=== PATIENT | male | born 1950 | race Caucasian/White ===

== ENCOUNTER 2018-11-21 13:59 | Day surgery (SDC) | payer OTHER ==
[~2018-11-21] VITALS: Ht 175.3 cm; Wt 101.8 kg
[~2018-11-21 13:59] MED LIST: ALLERGY RELIEF1 EAC2 PO; Cialis20 MG PO; Lotrel 10-40 M1 EACH PO; ROSU5 PO; VICODIN 5-3001 EACH PO; ZOLP10 PO
[2018-11-21] MEDS ORDERED: TAMS.4ER (14:13)
[2018-12-29] MEDS ORDERED: CLARITIN10 MG PO (10:44)
[2018-12-29] MEDS ORDERED: Cialis20 MG PO (10:45)
[2018-12-29] MEDS ORDERED: ROSU5 PO (10:45)
[2018-12-29] MEDS ORDERED: ZOLP10 PO (10:45)
== END 2018-11-21 14:48 | disposition home or self-care (01) ==
LOC: ORSCSDS 13:59
PROVIDERS: Anesthesiology
PROC: 3E0R33Z Introduction of Anti-inflammatory into Spinal Canal, Percutaneous Approach (ICD-10-PCS; principal; 2018-11-21 15:45)
DX: M51.16 Intervertebral disc disorders with radiculopathy, lumbar region (principal); M48.00 Spinal stenosis, site unspecified; I10 Essential (primary) hypertension; Z87.891 Personal history of nicotine dependence; E66.9 Obesity, unspecified; Z68.35 Body mass index [BMI] 35.0-35.9, adult; Z79.899 Other long term (current) drug therapy
CPT/HCPCS: J1040

== ENCOUNTER 2019-01-04 10:28 | Day surgery (SDC) | payer OTHER ==
[~2019-01-04] VITALS: Ht 170.2 cm; Wt 103.0 kg
[~2019-01-04 10:28] MED LIST changes: +CLARITIN10 MG PO; +TAMS.4ER
== END 2019-01-04 11:19 | disposition home or self-care (01) ==
LOC: ORSCSDS 10:28
PROVIDERS: Anesthesiology
PROC: 3E0R33Z Introduction of Anti-inflammatory into Spinal Canal, Percutaneous Approach (ICD-10-PCS; principal; 2019-01-04 11:30)
DX: M51.16 Intervertebral disc disorders with radiculopathy, lumbar region (principal); E66.9 Obesity, unspecified; Z68.36 Body mass index [BMI] 36.0-36.9, adult; M54.5 Low back pain; I10 Essential (primary) hypertension; Z79.899 Other long term (current) drug therapy
CPT/HCPCS: J1040

== ENCOUNTER 2019-11-09 16:43 | Inpatient (IN) | payer OTHER ==
[~2019-11-09] VITALS: Ht 172.7 cm; Wt 104.7 kg
[~2019-11-09 16:43] MED LIST changes: -Lotrel 10-40 M1 EACH PO; -TAMS.4ER
[2019-11-09 17:34] LABS: BASOPHILS ABSOLUTE AUTO 0.08 K/mm3 (0.00-0.23); BASOPHILS PERCENT AUTO 1 % (0-2); EOSINOPHILS ABSOLUTE AUTO 0.01 K/mm3 (0.00-0.68); EOSINOPHILS PERCENT AUTO 0 % (0-6); Hematocrit 48.3 % (37.0-53.0); Hemoglobin 16.7 g/dL (13.5-17.5); IMMATURE GRAN ABSOLUTE AUTO 0.16 K/mm3 (0.00-0.10); IMMATURE GRAN PERCENT AUTO 1 % (0-1); LYMPHOCYTES ABSOLUTE AUTO 0.55 K/mm3 (0.84-5.20); LYMPHOCYTES PERCENT AUTO 5 % (21-46); MONOCYTES ABSOLUTE AUTO 0.33 K/mm3 (0.16-1.47); MONOCYTES PERCENT AUTO 3 % (4-13); Mean Corpuscular HGB 32.1 pg (26.0-34.0); Mean Corpuscular HGB Conc 34.6 g/dL (31.5-36.5); Mean Corpuscular Volume 93 fL (80-100); Mean Platelet Volume 12.1 fL (9.1-12.4); NEUTROPHILS ABSOLUTE AUTO 10.75 K/mm3 (1.96-9.15); NEUTROPHILS PERCENT AUTO 91 % (41-73); Platelet Count 176 K/mm3 (150-400); RDW Coefficient Variation 12.9 % (11.7-14.2); RDW Standard Deviation 44.2 fL (35.1-46.3); Red Blood Cell Count 5.21 M/mm3 (4.30-5.90); White Blood Cell Count 11.88 K/mm3 (4.00-11.30)
[2019-11-09 17:57] LABS: Alanine Aminotransfer (ALT/SGP 159 U/L (12-78); Albumin, Blood 2.5 g/dL (3.4-5.0); Albumin/Globulin Ratio 0.5 (0.8-1.8); Alk Phos 175 U/L (50-136); Anion Gap 10 mmol/L (6-16); Aspartate Aminotrans (AST/SGOT 81 U/L (12-37); Bilirubin, Total 3.5 mg/dL (0.1-1.0); Blood Urea Nitrogen 44 mg/dL (8-24); Bun/Creatinine Ratio 35.5 (12.0-20.0); CO2, Blood 22 mmol/L (21-32); Calcium, Blood 10.4 mg/dL (8.5-10.1); Chloride, Blood 104 mmol/L (98-108); Creatinine, Blood 1.24 mg/dL (0.60-1.20); Globulin, Blood 5.5 g/dL (2.2-4.0); Glomerular Filtration Rate >60 (60-); Glucose, Blood 224 mg/dL (70-99); Potassium, Blood 4.3 mmol/L (3.5-5.5); Sodium, Blood 136 mmol/L (136-145); Troponin I <0.015 ng/mL (0.000-0.040)
[2019-11-09] MEDS ORDERED: TAMSULOSIN HCL0.4 M1 PO (21:11)
[2019-11-09] MEDS ORDERED: AMLODIPINE-BEN1 EAC3 PO (21:11)
[2019-11-09] MEDS ORDERED: LOTREL 10-40 M1 EACH PO (22:28)
[2019-11-09] MEDS ORDERED: TAMS.4ER PO (22:29)
[2019-11-09] MEDS ORDERED: Diclofenac Sod100 MG PO (22:29)
[2019-11-09] MEDS ORDERED: METO25ER PO (22:30)
[2019-11-09 23:04] LABS: Free Thyroxine 1.43 ng/dL (0.70-1.60); Thyroid Stimulating Hormone 3.11 uIU/mL (0.360-4.800); Triiodothyronine, Free 5.39 pg/mL (2.18-3.98)
[2019-11-10] MEDS ORDERED: Ocuvite Preser1 EACH PO (02:03)
--- NOTE | 2019-11-10 03:00 | NUR ---
PT ADMITTED TO ROOM ICU 3 UNDER PCU STATUS. ARRIVES TO ROOM AT 0135 IN STABLE CONDITION. IS ABLE TO STAND AND PIVOT TRANSFER TO BED. PT PLACE TO CARDIAC MONITORING. AFIB RVR. TEACHING DONE ON AFIB AND USE OF CARDIZEM DRIP. PT VOICES UNDERSTANDING. BLOOD PRESSURE WITH SBP 90-100'S. PT GOOD HISTORIAN. NO COMPLAINTS OF CHEST PAIN OR PRESSURE. WILL REVIEW CHART AND PLAN OF CARE FOR THIS PT.
[2019-11-10 04:52] LABS: BASOPHILS ABSOLUTE AUTO 0.05 K/mm3 (0.00-0.23); BASOPHILS PERCENT AUTO 1 % (0-2); EOSINOPHILS ABSOLUTE AUTO 0.18 K/mm3 (0.00-0.68); EOSINOPHILS PERCENT AUTO 2 % (0-6); Hematocrit 41.3 % (37.0-53.0); IMMATURE GRAN PERCENT AUTO 2 % (0-1); LYMPHOCYTES ABSOLUTE AUTO 0.53 K/mm3 (0.84-5.20); LYMPHOCYTES PERCENT AUTO 5 % (21-46); MONOCYTES ABSOLUTE AUTO 0.32 K/mm3 (0.16-1.47); MONOCYTES PERCENT AUTO 3 % (4-13); Mean Corpuscular HGB 31.5 pg (26.0-34.0); Mean Corpuscular HGB Conc 33.9 g/dL (31.5-36.5); Mean Corpuscular Volume 93 fL (80-100); Mean Platelet Volume 12.8 fL (9.1-12.4); NEUTROPHILS ABSOLUTE AUTO 9.13 K/mm3 (1.96-9.15); NEUTROPHILS PERCENT AUTO 88 % (41-73); Platelet Count 161 K/mm3 (150-400); RDW Coefficient Variation 12.8 % (11.7-14.2); RDW Standard Deviation 43.7 fL (35.1-46.3); Red Blood Cell Count 4.44 M/mm3 (4.30-5.90); White Blood Cell Count 10.41 K/mm3 (4.00-11.30)
[2019-11-10 05:20] LABS: Bun/Creatinine Ratio 31.4 (12.0-20.0); Calcium, Blood 9.2 mg/dL (8.5-10.1); Creatinine, Blood 1.69 mg/dL (0.60-1.20); Potassium, Blood 3.5 mmol/L (3.5-5.5)
--- NOTE | 2019-11-10 06:04 | NUR ---
PT CONTINUES WITH AFIB RVR WITH RATES 100-120'S. INCREASED CARDIZEM DRIP TO 15 MG PER HOUR. PT VOIDS 200 ML CONCENTRATED URINE. DENIES COMPLAINTS OF PAIN OR DISTRESS. DOES STATE THAT HE HAS BEEN HAVING SOME DYSPNEA AT HOME. WILL CONTINUE TO MONITOR PT, AND WILL REPORT OFF TO ONCOMING RN.
--- NOTE | 2019-11-10 14:15 | NUR ---
ECHO: [employer] INSTALLER IN ROOM AT THIS TIME.
--- NOTE | 2019-11-10 14:30 | NUR ---
SETTING UP FOR DARNELL AND CARDIOVERSION. RT NOTIFIED AND IN THE ROOM SETTING UP AT THIS TIME. 2 VIALS OF FENTANYL, 2 VIALS OF VERSED, 1 VIAL OF RAMAZACON, AND 1 VIAL OF NARCAN PULLED ON OVERRIDE AND SITTING AT BEDSIDE
--- NOTE | 2019-11-10 16:24 | NUR ---
Echocardiogram completed.
--- NOTE | 2019-11-10 17:21 | NUR ---
DARNELL & CARDIOVERSION: 1450 SUZE ARIVED TO THE ROOM 1455 TIME OUT OBSERVED, ZOLL PADS PLACED AND SYNCED WITH PT RHYTHM 1500 CARDIZEM DRIP TURNED DOWN TO 2MG/HR. PUSHED 1MG VERSED, 25MCG FENTANYL VIA IV 1502 PUSHED 1MG VERSED, 25MCG FENTANYL 1505 BP 112/84 CAMERA IN POSSITION AND VISUALIZATION OF HEART ON ECHO 1512 CAMERA OUT 1513 PUSHED 1MG VERSED, 25MCG FENTANYL 1515 200J SHOCK PT NOTED TO CONVERT TO SINUS RHYTHM 1523 PT STILL HAVING DIFFICULTY WAKING UP 0.1MG OF FLUMAZENIL ADMINISTERED 1531 500ML BOLUS OF NS STARTED BP NOTED 67/50 1535 PT MORE ALERT AND REQUESTING HIS TEETH, IN THE ROOM. BP 76/55 DR ARCINIEGA LEFT THE ROOM.
--- NOTE | 2019-11-10 19:00 | NUR ---
ASSUMED CARE OF PATIENT. RECEIVED REPORT FROM OFFGOING RN. PATIENT RESTING COMFORTABLY; NO C/O PAIN OR SOB. OCC. CONGESTED COUGH NOTED. RHYTHM REMAINS SR, RATE 90'S. CALL CANCINO IN REACH.
--- NOTE | 2019-11-10 23:24 | NUR ---
RECEIVED TRANSFER ORDERS FOR PATIENT TO BE MOVED TO MEDICAL FLOOR WITH TELEMETRY. REC'D. BED ASSIGNMENT, ROOM 333. REPORT CALLED TO ALEX CAI. PATIENT TRANSPORTED TO NEW ROOM VIA WHEELCHAIR WITH MONITOR AND RN.
--- NOTE | 2019-11-11 04:00 | NUR ---
SUMMARY PT ARRIVED TO FLOOR IN NO DISTRESS. PT CURRENTLY SR ON TELE. PT DENIES CX OR SOB. PT HAS BEEN VOIDING VIA URINAL. PT HAD A NOTED PERSISTANT COUGH AND PROVIDER ORDERED COUGH MED W/ SOME RELIEF. PT HAS NOT SLEPT MUCH DUE TO COUGH. PT CURRENTLY AWAKE AND IN NO DISTRESS. CALL LIGHT IN REACH.
[2019-11-11 05:45] LABS: BASOPHILS ABSOLUTE AUTO 0.05 K/mm3 (0.00-0.23); BASOPHILS PERCENT AUTO 0 % (0-2); Hematocrit 43.4 % (37.0-53.0); Hemoglobin 14.4 g/dL (13.5-17.5); LYMPHOCYTES ABSOLUTE AUTO 0.64 K/mm3 (0.84-5.20); LYMPHOCYTES PERCENT AUTO 5 % (21-46); MONOCYTES ABSOLUTE AUTO 0.51 K/mm3 (0.16-1.47); MONOCYTES PERCENT AUTO 4 % (4-13); Mean Corpuscular HGB Conc 33.2 g/dL (31.5-36.5); Mean Corpuscular Volume 93 fL (80-100); Mean Platelet Volume 12.2 fL (9.1-12.4); Platelet Count 173 K/mm3 (150-400); RDW Coefficient Variation 13.2 % (11.7-14.2); RDW Standard Deviation 45.3 fL (35.1-46.3); Red Blood Cell Count 4.65 M/mm3 (4.30-5.90)
[2019-11-11 06:03] LABS: Magnesium, Blood 2.5 mg/dL (1.6-2.4)
[2019-11-11 06:04] LABS: Albumin, Blood 2.2 g/dL (3.4-5.0); Albumin/Globulin Ratio 0.4 (0.8-1.8); Bilirubin, Total 3.2 mg/dL (0.1-1.0); Bun/Creatinine Ratio 39.3 (12.0-20.0); Calcium, Blood 9.7 mg/dL (8.5-10.1); Creatinine, Blood 1.45 mg/dL (0.60-1.20); Globulin, Blood 4.9 g/dL (2.2-4.0); Phosphorus, Blood 4.5 mg/dL (2.5-4.9); Potassium, Blood 3.7 mmol/L (3.5-5.5); Total Protein, Blood 7.1 g/dL (6.4-8.2)
[2019-11-11 06:05] LABS: EOSINOPHILS PERCENT AUTO 0 % (0-6); IMMATURE GRAN ABSOLUTE AUTO 0.25 K/mm3 (0.00-0.10); IMMATURE GRAN PERCENT AUTO 2 % (0-1); NEUTROPHILS ABSOLUTE AUTO 10.55 K/mm3 (1.96-9.15); NEUTROPHILS PERCENT AUTO 88 % (41-73)
[2019-11-11 06:08] LABS: BAND PERCENT MAN 4 % (0-8); BASOPHILS PERCENT MAN 0 % (0-2); EOSINOPHILS ABSOLUTE MAN 0.36 K/mm3 (0.00-0.68); EOSINOPHILS PERCENT MAN 3 % (0-6); LYMPHOCYTES ABSOLUTE MAN 0.48 K/mm3 (0.84-5.20); LYMPHOCYTES PERCENT MAN 4 % (21-46); MONOCYTES ABSOLUTE MAN 0.12 K/mm3 (0.16-1.47); MONOCYTES PERCENT MAN 1 % (4-13); NEUTROPHILS ABSOLUTE MAN 11.04 K/mm3 (1.96-9.15); SEG NEUTROPHILS PERCENT MAN 88 % (41-73); TOTAL CELLS COUNTED 100
[2019-11-11] MEDS ORDERED: ACET325 PO (09:43)
[2019-11-11] MEDS ORDERED: ASPI81CH PO (09:44)
[2019-11-11] MEDS ORDERED: MAXI-TUSS G LI473 ML PO (09:46)
[2019-11-11] MEDS ORDERED: XARELTO20 MG PO (09:47)
--- NOTE | 2019-11-11 15:01 | NUR ---
DISCHARGE DISCHARGED @1120. PATIENT EDUCATED USING TEACHBACK METHOD; VERBALIZED UNDERSTANDING OF THE DISCHARGE PAPERWORK. CARDIOLOGYXIN, CALLED THIS RN TO CONFIRM PT IS CLEARED FOR DISCHARGE @1000. PT WAS ABLE TO TAKE SHOWER INDEPENDENTLY POST METOPROLOL, WITH NO REPORTS OF DIZZINESS. REPORTED DRY COUGH IMPROVED. EDUCATED ON IMPORTANCE OF ALCOHOL CESSATION, INCREASED RISK OF STROKE WITH A FIB, DAPT, AND IMPORTANCE OF MONITORING BP AT HOME. NORMAL SINUS RHYTHM IN THE 70'S, PER MARKET RISK ANALYST AT TIME OF DISCHARGE. ALL BELONGINGS IN PT'S POSSESSION AT TIME OF TRANSFER TO PERSONAL VEHICLE, DRIVEN BY S/O.
== END 2019-11-11 11:22 | disposition home or self-care (01) | DRG 308 ==
LOC: ER 16:43 → ICUW 22:57 → ER 11-10 00:59 → ICUW 11-10 00:59 → MEDS 11-10 00:59 → ICUW 11-10 01:38 → ICUE 11-10 01:38 → MEDS 11-10 23:39
PROVIDERS: Emergency Medicine; Internal Medicine; Physician Assistant; ADMIT Internal Medicine
PROC: 5A2204Z Restoration of Cardiac Rhythm, Single (ICD-10-PCS; principal; 2019-11-10)
PROC: B246ZZ4 Ultrasonography of Right and Left Heart, Transesophageal (ICD-10-PCS; 2019-11-10)
DX: I48.0 Paroxysmal atrial fibrillation (principal); I50.21 Acute systolic (congestive) heart failure; K72.00 Acute and subacute hepatic failure without coma; N17.9 Acute kidney failure, unspecified; Z82.69 Family history of other diseases of the musculoskeletal system and connective tissue; Z98.52 Vasectomy status; N40.0 Benign prostatic hyperplasia without lower urinary tract symptoms; Z87.891 Personal history of nicotine dependence; I11.0 Hypertensive heart disease with heart failure; F10.20 Alcohol dependence, uncomplicated; I95.9 Hypotension, unspecified; E66.9 Obesity, unspecified; Z68.35 Body mass index [BMI] 35.0-35.9, adult; R79.89 Other specified abnormal findings of blood chemistry; Z79.82 Long term (current) use of aspirin
CPT/HCPCS: 36415; 71046; 71260; 76705; 80048; 80053; 83690; 83735; 83880; 84100; 84439; 84443; 84481; 84484; 85025; 85379; 92960; 93005; 93010; 93306; 93312; 93325; 96365-59; 96376-59; 99285-25; A9270-GY; J2250; J2310; J3010; J7030; Q9967; U0002

== ENCOUNTER 2021-01-17 06:09 | Day surgery (SDC) | payer OTHER ==
[~2021-01-17] VITALS: Ht 170.2 cm; Wt 113.6 kg
[~2021-01-17 06:09] MED LIST changes: +ACET325 PO; +AMLODIPINE-BEN1 EAC3 PO; +ASPI81CH PO; +Diclofenac Sod100 MG PO; +FINA5 PO; +LOSA50 PO; +LOTREL 10-40 M1 EACH PO; +MAXI-TUSS G LI473 ML PO; +METO25ER PO; +Ocuvite Preser1 EACH PO; +TAMS.4ER PO; +TAMSULOSIN HCL0.4 M1 PO; +XARELTO20 MG PO
--- NOTE | 2021-01-17 11:53 | NUR ---
PT DRESSED, DC'D BY WC BY THIS RN, FRIEND DRIVING PT HOME, DR MULLEN IN TO TALK WITH PT BEFORE DC, R DRESSING AND SPLINT IN PLACE ON R WRIST
== END 2021-01-17 11:30 | disposition home or self-care (01) ==
LOC: MHTC 06:09
DX: I25.110 Atherosclerotic heart disease of native coronary artery with unstable angina pectoris (principal); I11.0 Hypertensive heart disease with heart failure; I50.22 Chronic systolic (congestive) heart failure; I48.0 Paroxysmal atrial fibrillation; E66.01 Morbid (severe) obesity due to excess calories; N40.0 Benign prostatic hyperplasia without lower urinary tract symptoms; Z96.643 Presence of artificial hip joint, bilateral; Z68.39 Body mass index [BMI] 39.0-39.9, adult; Z79.01 Long term (current) use of anticoagulants
CPT/HCPCS: 76937; 93458; 99152; 99153; C1769; C1887; C1894; J1644; J2250; J3010; J7030; J7050; Q9967

== ENCOUNTER 2021-09-15 03:32 | Inpatient (IN) | payer OTHER ==
[~2021-09-15] VITALS: Ht 170.2 cm; Wt 108.2 kg
[~2021-09-15 03:32] MED LIST changes: -LOSA50 PO; +LOSARTAN-HCTZ1 EACH PO
[2021-09-15 04:44] LABS: BASOPHILS PERCENT AUTO 1 % (0-2); EOSINOPHILS PERCENT AUTO 0 % (0-6); Hematocrit 32.5 % (37.0-53.0); Hemoglobin 11.1 g/dL (13.5-17.5); IMMATURE GRAN ABSOLUTE AUTO 0.17 K/mm3 (0.00-0.10); IMMATURE GRAN PERCENT AUTO 1 % (0-1); LYMPHOCYTES ABSOLUTE AUTO 2.35 K/mm3 (0.84-5.20); LYMPHOCYTES PERCENT AUTO 15 % (21-46); MONOCYTES PERCENT AUTO 9 % (4-13); Mean Corpuscular HGB 33.7 pg (26.0-34.0); Mean Corpuscular HGB Conc 34.2 g/dL (31.5-36.5); Mean Corpuscular Volume 99 fL (80-100); Mean Platelet Volume 10.9 fL (9.1-12.4); NEUTROPHILS ABSOLUTE AUTO 12.03 K/mm3 (1.96-9.15); NEUTROPHILS PERCENT AUTO 74 % (41-73); Platelet Count 200 K/mm3 (150-400); RDW Coefficient Variation 12.4 % (11.7-14.2); Red Blood Cell Count 3.29 M/mm3 (4.30-5.90); White Blood Cell Count 16.15 K/mm3 (4.00-11.30)
[2021-09-15 04:59] LABS: Albumin, Blood 3.5 g/dL (3.4-5.0); Albumin/Globulin Ratio 1.1 (0.8-1.8); Bilirubin, Total 0.9 mg/dL (0.1-1.0); Bun/Creatinine Ratio 39.2 (12.0-20.0); Calcium, Blood 8.9 mg/dL (8.5-10.1); Creatinine, Blood 2.12 mg/dL (0.60-1.20); Globulin, Blood 3.2 g/dL (2.2-4.0); Total Protein, Blood 6.7 g/dL (6.4-8.2)
[2021-09-15] MEDS ORDERED: METO25ER PO (10:40)
[2021-09-15] MEDS ORDERED: ISOSORBIDE MONO60 MG PO (10:43)
[2021-09-15] MEDS ORDERED: VIT1CAPS12 PO (10:44)
[2021-09-15 10:49] LABS: Hematocrit 32.1 % (37.0-53.0)
[2021-09-15] MEDS ORDERED: TORSE20 PO (10:56)
[2021-09-15] MEDS ORDERED: POTCHL20ER PO (10:56)
[2021-09-15 13:08] LABS: Hemoglobin 9.9 g/dL (13.5-17.5)
[2021-09-15 13:19] LABS: International Normalized Ratio 1.19; Prothrombin Time Results 12.4 Sec (9.7-11.5)
[2021-09-15 13:29] LABS: CPK Creatine Kinase 88 U/L (39-308)
--- NOTE | 2021-09-15 16:57 | NUR ---
Admit Note Pt to room at approx 0955. Pt reports starting a "diuretic and potassium" about 1 weeks ago, last doses were yesterday 09/14/21. Pt also reports having bloody noses over the last 4 days, with red emesis. Pt oriented to room and call light. Pt alert, oriented x4, calm and cooperative with care. Pt resting in bed, up with sba. Tele afib, 80-90's, bp soft this afternoon, trending up after 2 units ffp and iv kcentra. Ls clear t/o, dim bases, spo2 >94% on ra, breathing even and unlabored. Abd distended, firm, nontender, pt states normal. Pt had episode this am of bloody nose, Dr Angela Lyon notified, orders for afrin entered, administered, pt continues to bleed from right nares, Dr Lyon to room and placed [place], pt continued to bleed for short amount of time, current bleeding has stopped and pt states he does not feel it dripping down his throat. Pt recieved 2 units ff, appears to tolerate well. VSS. No other acute changes noted. Will continue to monitor until report given to oncoming rn.
[2021-09-15 19:09] LABS: Hematocrit 26.6 % (37.0-53.0); Hemoglobin 9.1 g/dL (13.5-17.5)
[2021-09-15 21:37] LABS: Source, Urine Clean Catch
[2021-09-15 21:39] LABS: Bilirubin, Urine Neg (Neg); Blood, Urine Neg (Neg); Glucose Qualitative, Urine 2+ (Neg); Ketones, Urine Neg (Neg); Leukocyte Esterase, Urine Neg (Neg); Nitrite, Urine Neg (Neg); Protein, Urine Neg (Neg); Urobilinogen, Urine NORM (Normal)
[2021-09-15 21:49] LABS: Appearance, Urine Clear (Clear); Color, Urine Pale Yellow (P-Yellow)
[2021-09-15 21:58] LABS: CPK Creatine Kinase 121 U/L (39-308)
--- NOTE | 2021-09-15 22:40 | NUR ---
CARE ASSUMPTION: RECEIVED REPORT FROM TEE FLORES RN. PATIENT SITTING IN BED WITH SPOUSE AT BEDSIDE. PATIENT REQUESTS ANOTHER PILLOW AND ICE WATER. VS WNL, DENIES CHEST PAIN, SOB, OR DISCOMFORT. PATIENT HAD TARRY STOOLS - NOTIFIED HOSPITALIST AND RECEIVED NEW ORDERS. URINE SAMPLE COLLECTED. RHINO ROCKET IN PLACE WITH SCANT LEAKAGE. BED LOW WITH CALL LIGHT IN REACH.
[2021-09-16 00:55] LABS: BASOPHILS ABSOLUTE AUTO 0.05 K/mm3 (0.00-0.23); BASOPHILS PERCENT AUTO 1 % (0-2); EOSINOPHILS ABSOLUTE AUTO 0.01 K/mm3 (0.00-0.68); EOSINOPHILS PERCENT AUTO 0 % (0-6); Hematocrit 25.1 % (37.0-53.0); Hemoglobin 8.6 g/dL (13.5-17.5); IMMATURE GRAN ABSOLUTE AUTO 0.08 K/mm3 (0.00-0.10); IMMATURE GRAN PERCENT AUTO 1 % (0-1); LYMPHOCYTES ABSOLUTE AUTO 2.24 K/mm3 (0.84-5.20); LYMPHOCYTES PERCENT AUTO 22 % (21-46); MONOCYTES PERCENT AUTO 10 % (4-13); Mean Corpuscular HGB 33.7 pg (26.0-34.0); Mean Corpuscular HGB Conc 34.3 g/dL (31.5-36.5); Mean Corpuscular Volume 98 fL (80-100); Mean Platelet Volume 10.5 fL (9.1-12.4); NEUTROPHILS ABSOLUTE AUTO 6.73 K/mm3 (1.96-9.15); NEUTROPHILS PERCENT AUTO 67 % (41-73); Platelet Count 118 K/mm3 (150-400); RDW Coefficient Variation 12.7 % (11.7-14.2); RDW Standard Deviation 45.7 fL (35.1-46.3); Red Blood Cell Count 2.55 M/mm3 (4.30-5.90); White Blood Cell Count 10.11 K/mm3 (4.00-11.30)
[2021-09-16 01:18] LABS: Albumin, Blood 3.5 g/dL (3.4-5.0); Albumin/Globulin Ratio 1.2 (0.8-1.8); Bilirubin, Total 0.4 mg/dL (0.1-1.0); Bun/Creatinine Ratio 59.8 (12.0-20.0); Calcium, Blood 8.6 mg/dL (8.5-10.1); Creatinine, Blood 1.12 mg/dL (0.60-1.20); Globulin, Blood 2.8 g/dL (2.2-4.0); Potassium, Blood 3.6 mmol/L (3.5-5.5); Total Protein, Blood 6.3 g/dL (6.4-8.2)
--- NOTE | 2021-09-16 06:12 | NUR ---
SHIFT SUMMARY: PATIENT DENIES CHEST PAIN, SOB, AND RHINO ROCKET IN PLACE. PROPHYLACTIC PROTONIX ORDERED R/T BLACK, TARRY STOOLS. STOOL SAMPLE NOT COLLECTED AT THIS TIME - PATIENT AWARE A DRY SAMPLE IS NEEDED. HR 70-90S, IRREGULAR WITH T-WAVE DEPRESSION. PATIENT HAS HX OF AFIB. MEDICATED PER EMAR. PATIENT INDEPENDENT IN ROOM, USES CALL LIGHT APPROPRIATELY, PLEASANT AND COOPERATIVE WITH CARE. BED LOW AND CALL LIGHT IN REACH. WILL CONTINUE TO MONITOR AND REPORT TO ONCOMING RN.
[2021-09-16 07:15] LABS: Hematocrit 25.2 % (37.0-53.0); Hemoglobin 8.7 g/dL (13.5-17.5)
[2021-09-16 10:16] LABS: Hematocrit 22.7 % (37.0-53.0); Hemoglobin 8.1 g/dL (13.5-17.5)
--- NOTE | 2021-09-16 11:35 | NUR ---
CONSULT NOTE CALL PLACED BY THIS RN FOR ENT CONSULT W/ DR. BARNARD AT 1135. THIS NURSE SPOKE WITH BUCKLE SEWER TOSHIA WHO TOOK DOWN PT INFORMATION FOR CONSULT.
--- NOTE | 2021-09-16 19:34 | NUR ---
SHIFT SUMMARY PT ALERT AND ORIENTED X 4, VITAL SIGNS STABLE. PER TELE MONITORING, HR AFIB 80-90'S. PT DENIED FEELINGS OF CHEST PAIN/PRESSURE. SPO2 100% VIA ROOM AIR. RHINO ROCKET IN RIGHT NARE IN PLACE WITH NO SIGNS OF BLEEDING, DR. BARNARD CONSULTED PT AT APPROX. 1720. PRBC STILL INFUSING PER EMAR ORDERS, VITAL SIGNS STABLE T/O TRANSFUSION. PT ABLE TO UTILIZE BEDSIDE URINAL AND AMBULATE TO BATHROOM FOR BM. HE IS SBA TO MANAGE LINES. WAS AT BEDSIDE THIS AFTERNOON. SEE EMAR REVIEW FOR HGB VALUES. NO OTHER ACUTE CHANGES NOTED. REPORT GIVEN TO JACQUELYN JOHNSON. CALL LIGHT IN REACH.
--- NOTE | 2021-09-16 21:37 | NUR ---
CARE ASSUMPTION: RECEIVED REPORT FROM ALEX LOPEZ AT 1917. PATIENT SITTING ON SIDE OF BED WITH PRBC INFUSING. LUNGS CLEAR T/O AND VS WNL, PATIENT DENIES SOB OR CHEST PAIN. PARTNER, KIERRA, AT BEDSIDE. MEDICATED PER EMAR.
[2021-09-17 03:47] LABS: Hematocrit 24.8 % (37.0-53.0); Hemoglobin 8.6 g/dL (13.5-17.5); Mean Corpuscular HGB 33.7 pg (26.0-34.0); Mean Corpuscular HGB Conc 34.7 g/dL (31.5-36.5); Mean Corpuscular Volume 97 fL (80-100); Mean Platelet Volume 10.2 fL (9.1-12.4); Platelet Count 89 K/mm3 (150-400); RDW Coefficient Variation 13.9 % (11.7-14.2); RDW Standard Deviation 49.8 fL (35.1-46.3); Red Blood Cell Count 2.55 M/mm3 (4.30-5.90); White Blood Cell Count 6.33 K/mm3 (4.00-11.30)
[2021-09-17 04:00] LABS: Bun/Creatinine Ratio 35.2 (12.0-20.0); Calcium, Blood 8.7 mg/dL (8.5-10.1); Creatinine, Blood 0.85 mg/dL (0.60-1.20); Potassium, Blood 3.6 mmol/L (3.5-5.5)
--- NOTE | 2021-09-17 06:48 | NUR ---
SHIFT SUMMARY: NO ACUTE EVENTS THIS SHIFT. PATIENT DENIES SOB, CHEST PAIN, AND RHINO ROCKET IN PLACE. BED LOW WITH CALL LIGHT IN REACH. WILL REPORT TO ONCOMING RN.
== END 2021-09-17 09:45 | disposition home or self-care (01) | DRG 812 ==
LOC: ER 03:32 → PCU 03:33
PROVIDERS: Emergency Medicine; Internal Medicine; ADMIT Internal Medicine
PROC: 30283B1 Transfusion of Nonautologous 4-Factor Prothrombin Complex Concentrate into Vein, Percutaneous Approach (ICD-10-PCS; principal; 2021-09-15)
PROC: 30233K1 Transfusion of Nonautologous Frozen Plasma into Peripheral Vein, Percutaneous Approach (ICD-10-PCS; 2021-09-15)
PROC: 30233N1 Transfusion of Nonautologous Red Blood Cells into Peripheral Vein, Percutaneous Approach (ICD-10-PCS; 2021-09-15)
DX: D62 Acute posthemorrhagic anemia (principal); N17.9 Acute kidney failure, unspecified; I50.32 Chronic diastolic (congestive) heart failure; R04.0 Epistaxis; I48.91 Unspecified atrial fibrillation; I11.0 Hypertensive heart disease with heart failure; R77.8 Other specified abnormalities of plasma proteins; D72.829 Elevated white blood cell count, unspecified; Z96.643 Presence of artificial hip joint, bilateral; M54.9 Dorsalgia, unspecified; N40.0 Benign prostatic hyperplasia without lower urinary tract symptoms; I95.9 Hypotension, unspecified; R94.31 Abnormal electrocardiogram [ECG] [EKG]; G89.29 Other chronic pain; E86.9 Volume depletion, unspecified; Z79.01 Long term (current) use of anticoagulants; Z79.899 Other long term (current) drug therapy; Z98.890 Other specified postprocedural states; Z98.52 Vasectomy status; Z87.891 Personal history of nicotine dependence
CPT/HCPCS: 36415; 36680; 71045; 76770; 80048; 80053; 81003; 82550; 83880; 84484; 85014; 85018; 85025; 85027; 85610; 85730; 86850; 86900; 86901; 86923; 93005; 93010; 96361; 96374; 96375; 99285-25; A9270; C9113; G0378; J7030; J7040; J7168; P9016; P9059

== ENCOUNTER 2022-03-23 11:42 | Day surgery (SDC) | payer OTHER ==
[~2022-03-23] VITALS: Ht 170.2 cm; Wt 111.2 kg
[~2022-03-23 11:42] MED LIST changes: +ISOSORBIDE MONO60 MG PO; +POTCHL20ER PO; +TORSE20 PO; +VIT1CAPS12 PO
[2022-03-23] MEDS ORDERED: ISOMON20 (12:06)
[2022-03-23] MEDS ORDERED: LOSA25 (12:06)
[2022-03-23] MEDS ORDERED: XARELTO20 MG (12:07)
[2022-03-23] MEDS ORDERED: HYDCHL25 (12:07)
== END 2022-03-23 16:10 | disposition home or self-care (01) ==
LOC: ORSCSDS 11:42
PROVIDERS: Student in an Organized Health Care Education/Training Program
PROC: 0DBL8ZX Excision of Transverse Colon, Via Natural or Artificial Opening Endoscopic, Diagnostic (ICD-10-PCS; principal; 2022-03-23 13:00)
PROC: 0DBK8ZX Excision of Ascending Colon, Via Natural or Artificial Opening Endoscopic, Diagnostic (ICD-10-PCS; principal; 2022-03-23 13:00)
PROC: 0DBP8ZX Excision of Rectum, Via Natural or Artificial Opening Endoscopic, Diagnostic (ICD-10-PCS; principal; 2022-03-23 13:00)
PROC: 0DBM8ZX Excision of Descending Colon, Via Natural or Artificial Opening Endoscopic, Diagnostic (ICD-10-PCS; principal; 2022-03-23 13:00)
PROC: 0DBN8ZX Excision of Sigmoid Colon, Via Natural or Artificial Opening Endoscopic, Diagnostic (ICD-10-PCS; principal; 2022-03-23 13:00)
PROC: 0DBH8ZX Excision of Cecum, Via Natural or Artificial Opening Endoscopic, Diagnostic (ICD-10-PCS; principal; 2022-03-23 13:00)
DX: R19.5 Other fecal abnormalities (principal); D12.2 Benign neoplasm of ascending colon; D12.4 Benign neoplasm of descending colon; D12.0 Benign neoplasm of cecum; D12.3 Benign neoplasm of transverse colon; K63.5 Polyp of colon; K62.1 Rectal polyp; I48.91 Unspecified atrial fibrillation; I10 Essential (primary) hypertension; I50.9 Heart failure, unspecified; N40.0 Benign prostatic hyperplasia without lower urinary tract symptoms; I25.10 Atherosclerotic heart disease of native coronary artery without angina pectoris; Z79.899 Other long term (current) drug therapy; Z87.891 Personal history of nicotine dependence
CPT/HCPCS: 88305; 93005; 93010; J2250; J2704; J7120

== ENCOUNTER 2022-11-19 09:14 | Day surgery (SDC) | payer OTHER ==
[~2022-11-19 09:14] MED LIST changes: +HYDCHL25; +ISOMON20; +LOSA25; +XARELTO20 MG
[2022-11-19 13:19] VITALS: BP 140/55
[2022-11-19 13:38] VITALS: BP 127/52
[2022-11-19 14:39] VITALS: BP 118/47
[2022-11-19 14:57] VITALS: BP 130/49
[2022-11-19 15:18] VITALS: BP 132/52
[2022-11-19 16:19] VITALS: BP 118/54
== END 2022-11-19 16:38 | disposition home or self-care (01) ==
LOC: ATC 09:14
DX: D50.8 Other iron deficiency anemias (principal); I10 Essential (primary) hypertension; E78.49 Other hyperlipidemia; C61 Malignant neoplasm of prostate; I42.1 Obstructive hypertrophic cardiomyopathy; I47.1 Supraventricular tachycardia
CPT/HCPCS: 36415; 36430; 86850; 86900; 86901; 86923; J7050; P9016

== ENCOUNTER → 2022-11-25 | Outpatient (CLI) | payer OTHER ==
[2022-11-25 18:03] LABS: BASOPHILS ABSOLUTE AUTO 0.02 K/mm3 (0.00-0.23); BASOPHILS PERCENT AUTO 0 % (0-2); EOSINOPHILS PERCENT AUTO 0 % (0-6); Hematocrit 25.7 % (37.0-53.0); Hemoglobin 8.1 g/dL (13.5-17.5); IMMATURE GRAN ABSOLUTE AUTO 0.03 K/mm3 (0.00-0.10); IMMATURE GRAN PERCENT AUTO 1 % (0-1); LYMPHOCYTES ABSOLUTE AUTO 0.83 K/mm3 (0.84-5.20); LYMPHOCYTES PERCENT AUTO 16 % (21-46); MONOCYTES ABSOLUTE AUTO 0.48 K/mm3 (0.16-1.47); MONOCYTES PERCENT AUTO 9 % (4-13); Mean Corpuscular HGB 30.8 pg (26.0-34.0); Mean Corpuscular HGB Conc 31.5 g/dL (31.5-36.5); Mean Corpuscular Volume 98 fL (80-100); NEUTROPHILS ABSOLUTE AUTO 3.83 K/mm3 (1.96-9.15); NEUTROPHILS PERCENT AUTO 74 % (41-73); Platelet Count 132 K/mm3 (150-400); RDW Coefficient Variation 18.4 % (11.7-14.2); RDW Standard Deviation 62.9 fL (35.1-46.3); Red Blood Cell Count 2.63 M/mm3 (4.30-5.90); White Blood Cell Count 5.19 K/mm3 (4.00-11.30)
== END | disposition home or self-care (01) ==
LOC: LAB 16:22 → LAB SHORT 16:22
PROVIDERS: Family Medicine
DX: D50.8 Other iron deficiency anemias (principal)
CPT/HCPCS: 85025

== ENCOUNTER 2024-01-14 06:56 | Day surgery (SDC) | payer OTHER ==
[2024-01-14] VITALS (8 sets, daily range): BP systolic 121–160; BP diastolic 63–79
[~2024-01-14] VITALS: Ht 170.2 cm; Wt 117.0 kg
[~2024-01-14 06:56] MED LIST changes: +Crestor20 MG; +FURO20; +IRON18 MG; +LOSARTAN-HCTZ1 EAC5; +ONDA4ODT; +PANT40; +PRESERVISION A1 EAC1; +SPIR50 PO; +SYMBICORT 16010.2 GM INH; +Vitamin C100 M1
[2024-01-14] MEDS ORDERED: NS 500 ML IV ONE (07:47)
[2024-01-14] MEDS ORDERED: NS 1,000 ML IV ONE ×2 (07:48→08:06)
[2024-01-14] MEDS ORDERED: Heparin Sodium 1000 Units/ML 10ML MDV ONE ×2 (07:48→09:18)
[2024-01-14] MEDS ORDERED: Midazolam HCl 1MG / ML 2ML Vial ONE (08:20)
[2024-01-14] MEDS ORDERED: FentaNYL Citrate 50 MCG/ML 2 ML Injection ONE (08:20)
--- NOTE | 2024-01-14 09:45 | NUR ---
[facility], responds appropriately, right groin site soft and nontender, no hematoma, no bleeding
--- NOTE | 2024-01-14 11:23 | NUR ---
PT AMBULATED TO TO VOID. RIGHT FEM GROIN SITE SOFT NON-TENDER WTIH NO HEMATOMA, NO PULSATILE BLEEDING AND INTACT DRESSING. PT SITTING UP IN BED EATING. CALL LIGHT IN REACH.
--- NOTE | 2024-01-14 11:25 | NUR ---
patient sitting up in bed eating breakfast right groin site soft and nontender, no bleeding no hematoma
--- NOTE | 2024-01-14 12:00 | NUR ---
patient up to restrooom and dressed. patient vberbalizes understanding of discharge instructions and precautions, groin site remains, soft aand nontander, no hematoma, no bleeding, dressing D&I. patient taken to waiting car via wheel chair. iv site dced with catheter intact
== END 2024-01-14 13:39 | disposition home or self-care (01) ==
LOC: MHTC 06:56
DX: I70.212 Atherosclerosis of native arteries of extremities with intermittent claudication, left leg (principal); I48.0 Paroxysmal atrial fibrillation; I10 Essential (primary) hypertension; I25.10 Atherosclerotic heart disease of native coronary artery without angina pectoris; G89.29 Other chronic pain; Z88.8 Allergy status to other drugs, medicaments and biological substances; I65.21 Occlusion and stenosis of right carotid artery
CPT/HCPCS: 37221; 75625; 75716; 75774; 76937; 99152; 99153; C1725; C1760; C1769; C1876; C1887; C1894; C9772; J1644; J2250; J3010; J7030; J7050; Q9967

== ENCOUNTER 2024-02-18 05:46 | Day surgery (SDC) | payer OTHER ==
[2024-02-16 16:40] LABS: Hematocrit 22.1 % (37.0-53.0); Mean Corpuscular HGB 35.2 pg (26.0-34.0); Mean Corpuscular HGB Conc 31.7 g/dL (31.5-36.5); Mean Corpuscular Volume 111 fL (80-100); Mean Platelet Volume 10.1 fL (9.1-12.4); NRBC ABSOLUTE 0.11 K/mm3 (0.00-0.02); NRBC Auto 1.2 /100 WBC (0.0-0.2); Platelet Count 133 K/mm3 (150-400); RDW Standard Deviation 76.6 fL (35.1-46.3); Red Blood Cell Count 1.99 M/mm3 (4.30-5.90); White Blood Cell Count 9.19 K/mm3 (4.00-11.30)
[2024-02-16 17:04] LABS: EOSINOPHILS PERCENT MAN 0 % (0-6); TOTAL CELLS COUNTED 100
[2024-02-16 17:12] LABS: LYMPHOCYTES % ATYPICAL MANUAL 1 % (0-0)
[2024-02-16 17:14] LABS: BASOPHILS ABSOLUTE MAN 0.18 K/mm3 (0.00-0.23); BASOPHILS PERCENT MAN 2 % (0-2); LYMPHOCYTES ABSOLUTE MAN 1.01 K/mm3 (0.84-5.20); LYMPHOCYTES PERCENT MAN 10 % (21-46); MONOCYTES ABSOLUTE MAN 0.45 K/mm3 (0.16-1.47); MONOCYTES PERCENT MAN 5 % (4-13); NEUTROPHILS ABSOLUTE MAN 7.53 K/mm3 (1.96-9.15); SEG NEUTROPHILS PERCENT MAN 82 % (41-73)
[2024-02-18] VITALS (7 sets, daily range): BP systolic 91–127; BP diastolic 49–61
[2024-02-18] MEDS ORDERED: NS 250 ML IV SCH (06:50)
[2024-02-18 12:00] LABS: Hematocrit 26.1 % (37.0-53.0); Hemoglobin 8.4 g/dL (13.5-17.5)
== END 2024-02-18 11:53 | disposition home or self-care (01) ==
LOC: ATC 05:46
PROVIDERS: Family Medicine
DX: D62 Acute posthemorrhagic anemia (principal); I10 Essential (primary) hypertension; E78.49 Other hyperlipidemia; I48.19 Other persistent atrial fibrillation; Z79.899 Other long term (current) drug therapy; Z79.01 Long term (current) use of anticoagulants; Z88.8 Allergy status to other drugs, medicaments and biological substances; I65.23 Occlusion and stenosis of bilateral carotid arteries
CPT/HCPCS: 36415; 36430; 85014; 85018; 85025; 86850; 86900; 86901; 86923; 93880; J7050; P9016

== ENCOUNTER 2024-02-22 11:11 | Inpatient (IN) | payer OTHER ==
[~2024-02-22] VITALS: Ht 170.2 cm; Wt 119.9 kg
[~2024-02-22 11:11] MED LIST changes: +ASCO500 PO; -Crestor20 MG; +FEROSUL325 M1 PO; -FURO20; +FURO20 PO; -IRON18 MG; -LOSARTAN-HCTZ1 EAC5; +LOSARTAN-HCTZ1 EAC5 PO; -ONDA4ODT; +ONDA4ODT PO; -PANT40; +PANT40 PO; +ROSUVASTATIN CA20 MG PO; -Vitamin C100 M1; -XARELTO20 MG
[2024-02-22 12:33] LABS: BASOPHILS ABSOLUTE AUTO 0.04 K/mm3 (0.00-0.23); BASOPHILS PERCENT AUTO 1 % (0-2); EOSINOPHILS PERCENT AUTO 0 % (0-6); Hematocrit 23.7 % (37.0-53.0); Hemoglobin 7.5 g/dL (13.5-17.5); IMMATURE GRAN ABSOLUTE AUTO 0.06 K/mm3 (0.00-0.10); IMMATURE GRAN PERCENT AUTO 1 % (0-1); LYMPHOCYTES ABSOLUTE AUTO 1.08 K/mm3 (0.84-5.20); LYMPHOCYTES PERCENT AUTO 16 % (21-46); MONOCYTES ABSOLUTE AUTO 0.65 K/mm3 (0.16-1.47); MONOCYTES PERCENT AUTO 9 % (4-13); Mean Corpuscular HGB 34.7 pg (26.0-34.0); Mean Corpuscular HGB Conc 31.6 g/dL (31.5-36.5); Mean Corpuscular Volume 110 fL (80-100); Mean Platelet Volume 10.2 fL (9.1-12.4); NEUTROPHILS ABSOLUTE AUTO 5.12 K/mm3 (1.96-9.15); NEUTROPHILS PERCENT AUTO 74 % (41-73); NRBC ABSOLUTE 0.02 K/mm3 (0.00-0.02); NRBC Auto 0.3 /100 WBC (0.0-0.2); Platelet Count 132 K/mm3 (150-400); RDW Coefficient Variation 21.3 % (11.7-14.2); RDW Standard Deviation 83.5 fL (35.1-46.3); Red Blood Cell Count 2.16 M/mm3 (4.30-5.90); White Blood Cell Count 6.95 K/mm3 (4.00-11.30)
[2024-02-22 13:16] LABS: Albumin, Blood 3.2 g/dL (3.4-5.0); Albumin/Globulin Ratio 1.1 (0.8-1.8); Bilirubin, Total 0.7 mg/dL (0.1-1.0); Bun/Creatinine Ratio 25.6 (12.0-20.0); Calcium, Blood 8.6 mg/dL (8.5-10.1); Creatinine, Blood 1.17 mg/dL (0.60-1.20); Total Protein, Blood 6.2 g/dL (6.4-8.2)
[2024-02-22] MEDS ORDERED: NS 1,000 ML IV SCH (14:45)
[2024-02-22 15:12] LABS: International Normalized Ratio 1.06; Prothrombin Time Results 11.3 Sec (9.7-11.5)
[2024-02-22] MEDS ORDERED: FLU VACC TS2024-25(6MOS UP)/PF 45 MCG/0.5 ML SYRINGE IM SCH (15:40)
[2024-02-22] MEDS ORDERED: Ondansetron HCl 2 MG / ML 2ML Vial IV PRN (15:40)
[2024-02-22] MEDS ORDERED: Pantoprazole Sodium 40 MG Injection IV SCH (16:00)
[2024-02-22] MEDS ORDERED: Furosemide 10 MG / ML 2ML Vial IV SCH (16:00)
[2024-02-22] MEDS ORDERED: Phenylephrine HCl 100 MCG/ML-NS 10MLSYR (1MG/10ML) IV ONE (16:39)
[2024-02-22] MEDS ORDERED: Propofol 10mg/ml 20 ml Vial (Procedural) IV ONE (16:39)
[2024-02-22] MEDS ORDERED: Esmolol HCL 10 MG/ML 10ML VIAL IV ONE (16:39)
[2024-02-22] MEDS ORDERED: Melatonin 5 MG Tablet PO PRN (23:00)
[2024-02-23 03:00] VITALS: BP 132/60
[2024-02-23 04:54] LABS: Hematocrit 25.8 % (37.0-53.0); Mean Corpuscular HGB 33.1 pg (26.0-34.0); Mean Corpuscular Volume 107 fL (80-100); Mean Platelet Volume 10.4 fL (9.1-12.4); Platelet Count 135 K/mm3 (150-400); RDW Coefficient Variation 21.8 % (11.7-14.2); RDW Standard Deviation 82.9 fL (35.1-46.3); Red Blood Cell Count 2.42 M/mm3 (4.30-5.90); White Blood Cell Count 6.27 K/mm3 (4.00-11.30)
--- NOTE | 2024-02-23 06:39 | NUR ---
NOC SHIFT SUMMARY: NO ACUTE EVENTS TO REPORT THIS SHIFT. PT A&O X4; CALM AND COOPERATIVE WITH CARE. NO C/O PAIN THIS SHIFT. MEDICATED FOR INSOMNIA PER EMAR. TELE IN PLACE; A-FIB @ 68 PER DIVISION TRAFFIC SUPERINTENDENT DURING SHIFT ASSESSMENT. DIAGNOSTIC ENDOSCOPY EXPECTED IN 48 HRS, DUE TO ANTICOAGULANTS ONBOARD. BED LOW AND LOCKED; CALL LIGHT WITHIN REACH. WCTM.
[2024-02-23 07:54] VITALS: BP 139/71
[2024-02-23 12:03] LABS: Percent Saturation 10.4 % (20.0-50.0)
[2024-02-23 13:10] LABS: Hematocrit 26.7 % (37.0-53.0); Hemoglobin 8.3 g/dL (13.5-17.5)
[2024-02-23 15:49] VITALS: BP 141/57
[2024-02-23] MEDS ORDERED: POTASSIUM CHLORIDE PO SCH (18:00)
[2024-02-23] MEDS ORDERED: MAGNESIUM SULFATE PO SCH (18:00)
[2024-02-23] MEDS ORDERED: SODIUM SULFATE PO SCH (18:00)
--- NOTE | 2024-02-23 18:40 | NUR ---
SHIFT SUMMARY INDUSTRIAL ELECTRICAL TECHNICIAN REFERRAL COMPLETE, PT CLEARED FOR PROCEDURE. ROUNDED ON PT AND EDUCATED THIS NURSE AND PT ON BOWEL PREP INSTRUCTIONS. BOWEL PREP ADMINISTERED PER OORDER. PLAN FOR PROCEDURE TOMORROW. NO OTHER ACUTE CHANGES. CALL LIGHT WITHIN REACH AND PT ABLE TO MAKE NEEDS KNOWN.
[2024-02-23 21:12] VITALS: BP 153/58
--- NOTE | 2024-02-24 05:18 | NUR ---
SHIFT SUMMARY PATIENT IS ALERT AND ORIENTED. PATIENT HAS HAD NO ACUTE EVENTS THIS SHIFT. VITAL SIGNS REVIEWED. PATIENT IS FINISHING UP BOWEL PREP ADMINISTRATION. PAIENT HAS HAD NO COMPLAINTS OF PAIN, NAUSA, SOB OR VOMITTING. PATIENT HAS BEEN PLEASENT AND COOPERATIVE THIS SHIFT. BED IN LOCKED AND LOWEST POSITION. CALL LIGHT IN PLACE.
[2024-02-24 05:33] LABS: Hematocrit 24.3 % (37.0-53.0); Hemoglobin 7.6 g/dL (13.5-17.5); Mean Corpuscular HGB 32.9 pg (26.0-34.0); Mean Corpuscular HGB Conc 31.3 g/dL (31.5-36.5); Mean Corpuscular Volume 105 fL (80-100); Mean Platelet Volume 10.7 fL (9.1-12.4); Platelet Count 115 K/mm3 (150-400); RDW Coefficient Variation 20.4 % (11.7-14.2); RDW Standard Deviation 76.2 fL (35.1-46.3); Red Blood Cell Count 2.31 M/mm3 (4.30-5.90); White Blood Cell Count 4.44 K/mm3 (4.00-11.30)
[2024-02-24 05:48] VITALS: BP 146/47
[2024-02-24 07:23] VITALS: BP 137/58
[2024-02-24 11:14] VITALS: BP 180/77
[2024-02-24] MEDS ORDERED: Lactated Ringer's 1,000 ML IV SCH (11:20)
--- NOTE | 2024-02-24 13:09 | NUR ---
02/24/24 1309 Chelsey Torres 1246- History, Chart, Medications and Allergies reviewed before start of procedure.MONITOR INTACT WITH CONTINUOUS PULSE OXIMETRY, CONTINUOUS END TITAL CO2, AND INTERMITTENT BLOOD PRESSURE.3-LEAD EKG REVIEWED WITH PHYSICIAN PRIOR TO START OF PROCEDURE.O2 VIA POM INTACT THROUGHOUT SEDATION/PROCEDURE.4%LIDO PER DR. MANNING. Bite Block Placed. DR. MANNING PROVIDING MAC-SEE ANESTHESIA RECORD.
[2024-02-24 14:52] VITALS: BP 133/58
[2024-02-24 15:00] LABS: Hematocrit 25.7 % (37.0-53.0); Hemoglobin 8.2 g/dL (13.5-17.5)
--- NOTE | 2024-02-24 16:55 | NUR ---
report received verified. pt at side of bed ind to bathroom is anticipatin bidirectional endoscopy procedure today to look for potential bleeding. no cx/o pain no distress, pt is a little sob when amb.
--- NOTE | 2024-02-24 17:02 | NUR ---
1100, pt down for endoscopy
--- NOTE | 2024-02-24 17:02 | NUR ---
1330 pt back from endo, a/o delon procedure well and is asking to eat. vss no distress. pt delon liquids and would like solid food, i enc liq but pt insisted on solid. pudding and cheese given and pt delon well, reg diet to be orded for pt. Dr Lyon in to see pt, potential discharge for the morning, pt is satisfied with staying one more night.
[2024-02-24 19:49] VITALS: BP 135/60
[2024-02-25 04:04] VITALS: BP 132/50
--- NOTE | 2024-02-25 04:54 | NUR ---
AAAOX4, USES CALL LIGHT FOR NEEDS, INDEPENDENT IN ROOM. NO ACUTE NEEDS OVERNIGHT AND ANTICIPATING DC HOME THIS AM.
[2024-02-25 05:36] LABS: Hematocrit 26.1 % (37.0-53.0); Hemoglobin 8.2 g/dL (13.5-17.5); Mean Corpuscular HGB 32.9 pg (26.0-34.0); Mean Corpuscular HGB Conc 31.4 g/dL (31.5-36.5); Mean Corpuscular Volume 105 fL (80-100); Mean Platelet Volume 9.7 fL (9.1-12.4); Platelet Count 116 K/mm3 (150-400); RDW Coefficient Variation 18.9 % (11.7-14.2); RDW Standard Deviation 72.1 fL (35.1-46.3); Red Blood Cell Count 2.49 M/mm3 (4.30-5.90); White Blood Cell Count 4.46 K/mm3 (4.00-11.30)
[2024-02-25 07:29] VITALS: BP 107/49
--- NOTE | 2024-02-25 11:55 | NUR ---
PT RESTING QUIETLY AT START OF SHIFT. WOKE EASILY FOR CARE. ADMITTED FOR GIB; RESOLVED. DR WARNER HERE EARLY TO SEE PT AND REPORT THAT PT IS CLEAR FOR D/C PER DR PENNY. DR GIBSON ALSO SOON IN TO SEE PT AND DISCUSS PLAN OF CARE. PT CLEAR FOR D/C HOME. NO NEW MEDICATIONS ORDERED. HOME MEDS AND XARELTO DISCUSSED WITH PT; VERBALIZED UNDERSTANDING. PT UP TO SHOWER WITH ASSIST FROM VACUUM BOTTLE ASSEMBLER. PT ARRANGED FOR HIS RIDE. D/C INSTRUCTIONS REVIEWED WITH PT; VERBALIZED UNDERSTANDING. PT ASSISTED OUT TO CAR VIA W/C WITH ALL BELONGINGS.
== END 2024-02-25 10:45 | disposition home or self-care (01) | DRG 378 ==
LOC: ER 11:11 → MEDS 15:37 → ER 17:56 → MEDS 18:34 → ENPENDDIS 02-25 10:07 → MEDS 02-25 10:45
PROVIDERS: Physician Assistant; Student in an Organized Health Care Education/Training Program; Surgery; ADMIT Internal Medicine
PROC: 30233N1 Transfusion of Nonautologous Red Blood Cells into Peripheral Vein, Percutaneous Approach (ICD-10-PCS; 2024-02-22)
PROC: 0DBM8ZZ Excision of Descending Colon, Via Natural or Artificial Opening Endoscopic (ICD-10-PCS; 2024-02-24)
PROC: 0DBH8ZZ Excision of Cecum, Via Natural or Artificial Opening Endoscopic (ICD-10-PCS; 2024-02-24)
PROC: 0DBK8ZX Excision of Ascending Colon, Via Natural or Artificial Opening Endoscopic, Diagnostic (ICD-10-PCS; 2024-02-24)
PROC: 0DBM8ZX Excision of Descending Colon, Via Natural or Artificial Opening Endoscopic, Diagnostic (ICD-10-PCS; 2024-02-24)
PROC: 0DBH8ZX Excision of Cecum, Via Natural or Artificial Opening Endoscopic, Diagnostic (ICD-10-PCS; 2024-02-24)
PROC: 0DB68ZX Excision of Stomach, Via Natural or Artificial Opening Endoscopic, Diagnostic (ICD-10-PCS; principal; 2024-02-24 07:30)
PROC: 0DBK8ZZ Excision of Ascending Colon, Via Natural or Artificial Opening Endoscopic (ICD-10-PCS; 2024-02-24 07:30)
PROC: 0DBN8ZZ Excision of Sigmoid Colon, Via Natural or Artificial Opening Endoscopic (ICD-10-PCS; 2024-02-24 07:30)
DX: K92.1 Melena (principal); I48.20 Chronic atrial fibrillation, unspecified; I50.32 Chronic diastolic (congestive) heart failure; D50.9 Iron deficiency anemia, unspecified; K29.70 Gastritis, unspecified, without bleeding; K63.5 Polyp of colon; K52.9 Noninfective gastroenteritis and colitis, unspecified; E66.01 Morbid (severe) obesity due to excess calories; I11.0 Hypertensive heart disease with heart failure; N40.0 Benign prostatic hyperplasia without lower urinary tract symptoms; G89.29 Other chronic pain; M54.9 Dorsalgia, unspecified; Z96.643 Presence of artificial hip joint, bilateral; Z79.01 Long term (current) use of anticoagulants; Z98.52 Vasectomy status; Z98.890 Other specified postprocedural states; Z79.899 Other long term (current) drug therapy; Z87.891 Personal history of nicotine dependence
CPT/HCPCS: 36415; 36430; 80053; 82728; 83540; 83550; 85014; 85018; 85025; 85027; 85610; 86850; 86900; 86901; 86923; 88305; 88342; 96361; 96374; 96375; 96376; 99285-25; A9270; G0378; J1940; J2371; J2470; J2704; J7030; J7120; P9016

== ENCOUNTER 2024-08-16 00:58 | Day surgery (SDC) | payer MEDICARE ==
[2024-08-16] MEDS ORDERED: NS 250 ML IV SCH (07:05)
[2024-08-16 07:49] VITALS: BP 127/56
[2024-08-16 08:08] VITALS: BP 133/58
[2024-08-16 09:10] VITALS: BP 146/66
[2024-08-16 09:39] VITALS: BP 149/74
[2024-08-16 10:00] VITALS: BP 152/63
[2024-08-16 11:02] LABS: Hematocrit 35.2 % (37.0-53.0); Hemoglobin 11.1 g/dL (13.5-17.5)
== END 2024-08-16 10:40 | disposition home or self-care (01) ==
LOC: ATC 00:58 → EDSTATUS 07:30 → ATC 10:40
PROVIDERS: Family Medicine
DX: D50.0 Iron deficiency anemia secondary to blood loss (chronic) (principal); I10 Essential (primary) hypertension; E78.5 Hyperlipidemia, unspecified; Z79.82 Long term (current) use of aspirin; Z79.899 Other long term (current) drug therapy; D50.8 Other iron deficiency anemias
CPT/HCPCS: 36415; 36430; 85014; 85018; 85025; 86850; 86900; 86901; 86923; J7050; P9016